=== PATIENT | female | born 1995 | race Two or more races ===

== ENCOUNTER 2021-04-20 19:57 | Emergency (ER) | payer OTHER ==
[2021-04-20 20:03] VITALS: BP 117/78; PULSE 67; TEMP 98; BMI 31.6
[2021-04-20 22:31] LABS: BASO % 0.7 % (0-2.0); EOS % 0.6 % (0-4.5); HEMOGLOBIN 14.4 GM/dL (10.7-15.3); LYMPH % 20.5 % (8-40); MCH 32.4 pg (25.7-33.7); MCHC 35.9 g/dl (32.0-36.0); MEAN CELL VOLUME 90.1 fl (80-96); MEAN PLT VOLUME 7.8 fl (7.5-11.1); MONO % 5.5 % (3.8-10.2); NEUT % 72.7 % (42.8-82.8); PLATELET COUNT 270 10^3/uL (134-434); RBC 4.44 M/mm3 (3.60-5.2); WHITE BLOOD COUNT 10.7 K/mm3 (4.0-10.0)
[2021-04-20 22:35] LABS: PH,URINE 5.5 (5.0-8.0); URINE APPEARANCE CLEAR; URINE BILIRUBIN NEGATIVE (NEGATIVE); URINE COLOR YELLOW; URINE GLUCOSE (UA) NEGATIVE (NEGATIVE); URINE KETONE TRACE (NEGATIVE); URINE LEUK ESTERASE NEGATIVE (NEGATIVE); URINE NITRITE NEGATIVE (NEGATIVE); URINE PROTEIN NEGATIVE (NEGATIVE); URINE UROBILINOGEN 0.2 mg/dL (0.2-1.0)
[2021-04-20 22:38] LABS: HCG,QUALITATIVE URINE Negative
[2021-04-20 22:56] LABS: BLOOD UREA NITROGEN 10.9 mg/dL (7-18); CALCIUM 9.4 mg/dL (8.5-10.1)
[2021-04-20 22:57] LABS: ALBUMIN 4.1 g/dl (3.4-5.0)
[2021-04-20] MEDS ORDERED: KETOROLAC TROMETHAMINE 30 MG/1 ML VIAL IVPUSH ONE (22:58)
[2021-04-20 23:00] LABS: CREATININE 0.7 mg/dL (0.55-1.3)
[2021-04-20 23:01] LABS: BILIRUBIN,TOTAL 0.7 mg/dL (0.2-1); TOT PROT 7.8 g/dl (6.4-8.2)
[2021-04-20] MEDS ORDERED: KETOROLAC TROMETHAMINE 30 MG/1 ML VIAL ONE (23:07)
== END 2021-04-21 02:10 | disposition home or self-care (01) ==
LOC: JER 19:57
PROC: 3E0333Z Introduction of Anti-inflammatory into Peripheral Vein, Percutaneous Approach (ICD-10-PCS; principal; 2021-04-20)
DX: R10.2 Pelvic and perineal pain (principal)
CPT/HCPCS: 36415; 74177-TC; 76830-TC; 76856-TC; 80053; 81003; 84703; 85025; 87086; 87491; 87591; 99285-25; Q9967

== ENCOUNTER 2021-10-01 17:07 | Emergency (ER) | payer OTHER ==
[2021-10-01 17:47] VITALS: BP 117/78; PULSE 72; TEMP 98; BMI 34.9
[2021-10-01] MEDS ORDERED: KETOROLAC TROMETHAMINE 30 MG/1 ML VIAL IM ONE (19:52)
[2021-10-01] MEDS ORDERED: ONDANSETRON *ODT* 4 MG TABLET SL ONE (19:52)
[2021-10-01] MEDS ORDERED: KETOROLAC TROMETHAMINE 30 MG/1 ML VIAL ONE (20:00)
[2021-10-01] MEDS ORDERED: ONDANSETRON *ODT* 4 MG TABLET ONE (20:00)
[2021-10-03 06:08] LABS: SARS-CoV-2 NAA Not Detected (Not Detected)
== END 2021-10-01 20:59 | disposition left against medical advice (07) ==
LOC: JER 17:07
PROC: 3E0233Z Introduction of Anti-inflammatory into Muscle, Percutaneous Approach (ICD-10-PCS; principal; 2021-10-01)
DX: G44.89 Other headache syndrome (principal)
CPT/HCPCS: 84703; 87804; 99284-25; C9803-CS; Q0162; U0003; U0005